=== PATIENT | female | born 1945 | race Caucasian/White ===

== ENCOUNTER 2020-04-18 18:42 | Inpatient (IN) | payer OTHER, MEDICARE ==
[2020-04-18] VITALS (17 sets, daily range): BP systolic 116–167; BP diastolic 63–127
[~2020-04-18] VITALS: Ht 152.4 cm; Wt 81.4 kg
--- NOTE | ~2020-04-18 | EKG ---
[place] [address] ELECTROCARDIOGRAM REPORT Name: BOBBY SWENSON Room: [address] ADM IN .R.#: [id number] Admission: 04/18/20 Attend Phys: Kyler Vick Discharge: Date of : 45 Date of Service: 04/20/20 0841 Report #: [id number] THIS REPORT FOR: //name// [facility] Test Date: 2020-04-20 Test Time: 08:41:47 Pat Name: BOBBY SWENSON Department: Room: [facility] Gender: F Fork Operator: : 1945 Requested By: Gerson Hurst Order Number: [id number] Reading MD: Measurements Intervals [place] Rate: 72 P: 50 [place]: 134 QRS: -2 QRSD: 101 T: 163 QT: 403 QTc: 442 Interpretive Statements Sinus rhythm Repol abnrm suggests ischemia, lateral leads Compared to ECG 04/19/2020 03:22:03 Possible ischemia now present Atrial fibrillation no longer present Ventricular premature complex(es) no longer present Left ventricular hypertrophy no longer present Inferior Q waves no longer present Q waves no longer present [email or web address] By: 0 0 Epiphany Epiphany, /RAÚL
[2020-04-18 19:01] LABS: ABSOLUTE BASOPHILS 0.1 thou/uL (0.0-0.2); ABSOLUTE EOSINOPHILS 0.2 thou/uL (0.0-0.7); ABSOLUTE MONOCYTES 0.7 thou/uL (0.0-1.2); ABSOLUTE NEUTROPHILS 5.8 thou/uL (1.6-8.1); BASOPHILS 0.7 %; EOSINOPHILS 1.9 %; HEMATOCRIT 43.7 % (37.0-47.0); HEMOGLOBIN 15.1 gm/dL (12.0-15.0); MCH 31.3 pg (26.0-34.0); MCHC 34.6 g/dL (28.0-37.0); MCV 90.7 fL (80.0-100.0); NUCLEATED RBCS 0 /100WBC; PLATELET COUNT* 260 thou/uL (150-400); POLYS 66.4 %; RBC 4.82 mil/uL (4.20-5.00); RDW-CV 14.3 % (10.5-14.5); WBC 8.7 thou/uL (4.0-11.0)
[2020-04-18] MEDS ORDERED: ELIQUIS5 M1 PO (19:01)
[2020-04-18 19:12] LABS: CALCIUM 9.3 mg/dL (8.5-10.1); CREATININE 0.8 mg/dL (0.6-1.3); POTASSIUM 3.5 mmol/L (3.5-5.1)
[2020-04-18 19:15] LABS: APTT 26.2 Seconds (25.0-31.3); PROTIME 10.5 Seconds (9.20-11.50)
[2020-04-18 19:18] LABS: CHOLESTEROL 290 mg/dL (<200); HDL CHOLESTEROL 33 mg/dL (>40); TC:HDL 8.8 Ratio (Not establshd); TRIGLYCERIDE 513 mg/dL (<150); VLDL 103 mg/dL (<40)
[2020-04-18 19:21] LABS: SERUM ASSESSMENT Slight Lipemia
[2020-04-18 19:24] LABS: ALBUMIN 3.6 g/dL (3.4-5.0); CK-MB MASS 1.8 ng/mL (<0.5-3.6); MAGNESIUM 1.9 mg/dL (1.8-2.4); TOTAL BILIRUBIN 0.3 mg/dL (<0.1-1.0); TOTAL PROTEIN 7.3 g/dL (6.4-8.2)
[2020-04-19] VITALS (46 sets, daily range): BP systolic 102–203; BP diastolic 47–124
[2020-04-19 03:21] LABS: HEMATOCRIT 41.9 % (37.0-47.0); HEMOGLOBIN 14.1 gm/dL (12.0-15.0); MCH 30.6 pg (26.0-34.0); MCHC 33.7 g/dL (28.0-37.0); MCV 90.8 fL (80.0-100.0); MPV 10.1 fl. (7.2-11.1); RBC 4.61 mil/uL (4.20-5.00); RDW-CV 14.4 % (10.5-14.5)
[2020-04-19 03:34] LABS: ALBUMIN 3.1 g/dL (3.4-5.0); CALCIUM 8.7 mg/dL (8.5-10.1); CREATININE 0.7 mg/dL (0.6-1.3); POTASSIUM 3.9 mmol/L (3.5-5.1); TOTAL BILIRUBIN 0.1 mg/dL (<0.1-1.0); TOTAL PROTEIN 6.1 g/dL (6.4-8.2)
--- NOTE | 2020-04-19 07:31 | NUR ---
PT PRESENTED TO THE UNIT IN AFIB RVR. RATING CHEST AND NECK PRESSURE 2/10. PT REPORTS O2 HELPED HER FEEL BETTER. PT STATES SHE "HASNT TAKEN ANY OF HER HOME MEDS IN A MONTH." PT WAS VERY ANXIOUS AND BP 160'S/100'S. DR ROBERTSON NOTIFIED. PRN ATIVAN ORDERED AND GIVEN. PT'S HR STARTED TO STABALIZE UNDER 100 SHORTLY BEFORE 0300. PT HAD A PAUSE FOLLOWED BY TAYLOR WITH COUPLETS/BIGEMINEY. PT CONVERTED TO SB AROUND 0600. PT DID SLEEP WELL WITH THE ATIVAN AND WOKE UP EASILY TO VOICE DURING CHECKS AND THIS AM. REPORT TO DAY RN.
--- NOTE | 2020-04-19 13:56 | EKG ---
[place] [address] ELECTROCARDIOGRAM REPORT Name: BOBBY SWENSON Room: [address] ADM IN .R.#: [id number] Admission: 04/18/20 Attend Phys: Kyler Vick Discharge: Date of : 45 Date of Service: 04/18/20 1853 Report #: [id number] THIS REPORT FOR: //name// [facility] ED Test Date: 2020-04-18 Test Time: 18:53:42 Pat Name: BOBBY SWENSON Department: Room: [facility] Gender: F Interactive Media Specialist: : 1945 Requested By: Marek Cooper Order Number: [id number] MD: Gerson Hurst Measurements Intervals [place] Rate: 160 P: 153 MI: 80 QRS: -8 QRSD: 94 T: 158 QT: 289 QTc: 472 Interpretive Statements atrial fibrillation Abnormal R-wave progression, late transition LVH with secondary repolarization abnormality ST depression, probably rate related Compared to ECG 06/05/2008 11:10:09 Sinus rhythm no longer present Electronically Signed On 04-19-2020 13:55:57 HEADING UP MACHINE OPERATOR by Gerson Hurst [email or web address] <ELECTRONICALLY SIGNED> By: Gerson Hurst MD, FAC 04/19/20 1355 52 52 Gerson Hurst MD, [facility] /EPI
--- NOTE | 2020-04-19 13:58 | EKG ---
[place] [address] ELECTROCARDIOGRAM REPORT Name: BOBBY SWENSON Room: [address] ADM IN M.R.#: [id number] Admission: 04/18/20 Attend Phys: Kyler Vick Discharge: Date of : 45 Date of Service: 04/19/20 0322 Report #: [id number] THIS REPORT FOR: //name// [facility] Test Date: 2020-04-19 Test Time: 03:22:03 Pat Name: BOBBY SWENSON Department: Room: [address] Gender: F Medical Education Coordinator: LANI : 1945 Requested By: Damaris Simmons Order Number: [id number] Reading MD: Gerson Hurst Measurements Intervals [place] Rate: 73 P: [place]: QRS: 6 QRSD: 94 T: 174 QT: 403 QTc: 444 Interpretive Statements Atrial fibrillation Ventricular premature complex LVH with secondary repolarization abnormality Abnormal inferior Q waves Compared to ECG 04/18/2020 18:53:42 Ventricular premature complex(es) now present rate has slowed ST (T wave) deviation still present Electronically Signed On 04-19-2020 13:58:33 CLERICAL RECEPTIONIST by Gerson Hurst [email or web address] <ELECTRONICALLY SIGNED> By: Gerson Hurst MD, [facility] 04/19/20 1358 1 1 Gerson Hurst MD, [facility] /EPI
--- NOTE | 2020-04-19 14:19 | CARD ---
[address] [address] CARDIAC CATH REPORT Name: BOBBY SWENSON Room: [address] IN [facility]#: [id number] Admission: 04/18/20 Attend Phys: Marisol Pruitt Discharge: Date of : 45 Report #: [id number] THIS REPORT FOR: cc: Spencer Hicks MD, Bruce D. MD ~ Gerson Hurst MD [facility] APPROVED REPORT Study performed: 04/18/2020 19:03:56 Patient Details Patient Status: In-Patient Room #: The patient is a 75 year-old female Event Personnel Gerson Hurst Fuel Cell Technician, Megan Rodrigues RN Senior Research Scientist, Anshul Azevedo PERSHING MISSILE CREWMEMBER Monitor, Destiny Mirza RTR Scrub Procedures Performed cath pci Indication Abnormal ECG, Palpitations, Atrial fibrillation, Chest pain Risk Factors Hypercholesterolemia, Coronary Artery DiseaseHypertension Previous Procedures/Diagnoses Previous PCI Admission/Lab Medications/Medications given during procedure Glycoprotein IllbIlla Inhibitors, Heparin Unfract. Procedure Narrative The patient was brought electively to the Cardiac Catheterization Laboratory and was prepped and draped in a sterile manner. The right wrist was infiltrated with 2% Lidocaine subcutaneous anesthesia. A Slender Glidesheath sheath was inserted into the right radial artery. Coronary angiography was performed using coronary diagnostic catheters. The right coronary system was accessed and visualized with a JR 3.5 catheter. The left coronary system was accessed and visualized with a JL4 catheter. The left ventricle was accessed and visualized with a Pig Tail catheter. Left ventricular/Aortic Valve [address] [address] CARDIAC CATH REPORT Name: SYDNIEAdeelBOBBY Room: [address] IN [facility]#: [id number] Admission: 04/18/20 Attend Phys: Marisol Pruitt Discharge: Date of : 45 Report #: [id number] gradient assessed via catheter pullback. Left ventriculogram was performed in GRANADO projection. Closure device was deployed with a 6 Fr Vasc-Band Reg 24cm. The patient tolerated the procedure well and there were no complications associated with the procedure. There was no hematoma. Intraoperative Conscious Sedation Sedation start time: 11:17 Case end Time: 12:15 Versed 2 mg Fluoro Time: 11.6 minutes Dose: DAP 308304 cGycm2 1792 mGy Contrast Type and Amount: Omnipaque 150 ml Coronary Angiography The patient's coronary anatomy is co- dominant. Diagnostic Cath Left Main 0% stenosis LAD 50% ostial stenosis, 80% stenosis just prior to the second diagonal, and 90% stenosis distal to the second diagonal Diagonal 2 small artery with 90% mid stenosis OM2 stent with 60% restenosis OM3 small vessel appeared chronically occluded and filled by bridging collaterals Right Coronary stent in proximal and mid vessel appeared chronicall occluded and filled by contralateral collaterals from the left coronary artery. Left Ventriculography The left ventricular ejection fraction is estimated to be 60-65%. Left ventricular wall motion abnormalities are not present. There is 1+ mitral insufficiency. Hemodynamics The aortic pressure is 140/55 mmHg with a mean of 89 mmHg. The left ventricular pressure is 143/10 mmHg with a mean of mmHg. The left ventricular end diastolic pressure is 20 mmHg. There was no gradient across the aortic valve upon pullback. Pullback from the left ventricle to the aorta revealed no gradient across the aortic valve. PCI Technique Lesion Anticoagulation was achieved with Heparin. [place] [address] CARDIAC CATH REPORT Name: BOBBY SWENSON Room: [address] IN [facility].#: [id number] Admission: 04/18/20 Attend Phys: Marisol Pruitt Discharge: Date of : 45 Report #: [id number] Percutaneous coronary intervention was performed on the mid left anterior descending artery segment. The lesion stenosis prior to intervention was 90% with ITALIA 3 flow. A 6F XB LAD 3.5 Guide Catheter was used to engage the left ostium. A IG: BMW 190cm Interventional Guidewire was used to cross the lesion. BALLOON DILATION A Balloon catheter Trek RX 2.5 X 8 was inserted and inflated up to 8.00atm for 12seconds. Repeat angiography revealed the following post-dilatation results: 60% stenosis. Additional Inflation: 8.00atm for 9seconds. Additional Inflation: 12.00atm for 14seconds. STENT DEPLOYMENT A drug-eluting stent Hadley RX Stent 2.5X12mm was inserted and inflated up to 11.00atm for 23seconds. Additional Inflation: 16.00atm for 8seconds. Additional Inflation: 20.00atm for 9seconds. After placing the first stent, a second drug eluting stent 3.0 x 12 mm was placed proximal to the first stent so that there was minimal overlap between the 2 stents Final angiography reveals 0 % stenosis with ITALIA 3 flow. PCI Technique Lesion 2 Percutaneous Coronary Intervention was performed on the proximal right coronary artery. Percutaneous coronary intervention was performed on the proximal right coronary artery. The lesion stenosis prior to intervention was 100% with ITALIA 0 flow. A JR4 Guide Catheter was used to engage the rca ostium. A bmw Interventional Guidewire was used to cross the lesion. Balloon Dilation Unable to advance the guide wire beyond the stenosis suggested the occlusion was chronic. Further attempts at PTCA of the RCA were abandoned. Conclusion 1. 90% stenosis of the mid LAD 2. Stent in the second marginal branch of the circumflex had a 60% restenosis 3. Stents in the proximal RCA could not be crossed with a guide wire suggesting the occlusion was chronic 4. LVEF 60-65% 5. successful placement of 2 drug eluting stents in the [place] [address] CARDIAC CATH REPORT Name: BELLADEBBIEBOBBY CASTRO Room: [address] IN [facility]#: [id number] Admission: 04/18/20 Attend Phys: Marisol Pruitt Discharge: Date of : 45 Report #: [id number] Cardiac Rehabilitation Referral Aggressive Medical Therapy Medications Administered Clopidogrel <ELECTRONICALLY SIGNED> By: Gerson Hurst MD, FACC 04/19/20 1419 1419 1419Gerson Hurst MD, FAC /INF
--- NOTE | 2020-04-19 20:13 | NUR ---
I ASSUMED CARE OF THE PATIENT AT 0700. SHE IS ALERT AND ORIENTED X4 AND IS UP WITH SBA. BED IS IN THE LOW LOCKED POSITION AND CALL LIGHT IS IN REACH. HOURLY ROUNDING IS COMPLETED AND PATIENT NEEDS ARE MET. PAIN IS MANAGED WITH PRN MEDS. SHE WENT TO THE EXPORT TRAFFIC DEPARTMENT MANAGER AND HAD STENTS PLACED. AFTER SHE RETURNED, BLOOD PRESSURE WAS HIGH AND PRN MEDS WERE GIVEN TO LOWER PRESSURE. DAUGHTER WAS AT THE BEDSIDE FOR A WHILE AND SEEMS TO INCREASE THE PATIENT'S ANXIETY. APPETITE IS GOOD AND SHE IS VOIDING APPRORIATELY. REPORT CALLED AND PATIENT WAS TRANSFERED TO TELE AT SHIFT CHANGE.
[2020-04-20 00:41] VITALS: BP 169/63
[2020-04-20 04:06] LABS: HEMOGLOBIN 12.3 gm/dL (12.0-15.0); MCH 30.8 pg (26.0-34.0); MCHC 34.1 g/dL (28.0-37.0); MCV 90.3 fL (80.0-100.0); MPV 9.4 fl. (7.2-11.1); RBC 3.99 mil/uL (4.20-5.00); RDW-CV 14.2 % (10.5-14.5); WBC 7.7 thou/uL (4.0-11.0)
[2020-04-20 04:24] LABS: CALCIUM 8.2 mg/dL (8.5-10.1); CREATININE 0.7 mg/dL (0.6-1.3); MAGNESIUM 1.7 mg/dL (1.8-2.4); POTASSIUM 3.5 mmol/L (3.5-5.1)
[2020-04-20 04:29] LABS: TROPONIN-I LEVEL 0.69 ng/mL (<0.06)
[2020-04-20 04:48] VITALS: BP 165/73
[2020-04-20] MEDS ORDERED: LIPITOR 40 MG T40 M1 PO (07:52)
[2020-04-20] MEDS ORDERED: CLOPIDOGREL75 MG PO (07:52)
[2020-04-20] MEDS ORDERED: COZAAR 25 MG TA25 M2 PO (07:52)
[2020-04-20] MEDS ORDERED: ASA81BEC PO (07:52)
[2020-04-20] MEDS ORDERED: AMIODARONE HCL400 MG PO (07:54)
[2020-04-20 08:01] VITALS: BP 190/78
--- NOTE | 2020-04-20 08:44 | NUR ---
ASSUMED CARE OF PT THIS AM AROUND 0715- LABOR TRAINING MANAGER IN PLACE ORDERED, TRACING SR- UPON ASSESSMENT PT NOTED TO BE UP IN BED SIDE RECLINER- PT A&O X4- CONT OF B/B- UP AD-KADEI IN ROOM, STEADY GAIT NOTED- LCTA, DYSPNEA NOTED ON EXERTION- BP NOTED TO BE ELEVATED AT 190/78,PRN HYDRALAZINE GIVEN THIS AM AT 0750- O2 SAT 98% ON RA- ABD SOFT/ROUND/NON-TENDER, BS X4 QUADS- LAST BM REPORTED 04/18/20- IV NOTED TO LEFT HAND AND RIGHT AC INTACT AND SL- POOR PO INTAKE NOTED THIS AM WITH BREAKFAST- PT DENEIS ANY C/O PAIN- D/C PENDING CARDIO THIS AM- CALL LIGHT AND PERSONAL BELONGINGS WITH IN REACH- ALL NEEDS MET AT THIS TIME
[2020-04-20 09:48] VITALS: BP 181/70
[2020-04-20 10:04] VITALS: BP 181/70
--- NOTE | 2020-04-20 10:05 | NUR ---
Cardiac Rehab. Attempted to see patient but was already discharged. Will main Cardiac Rehab booklet, Heart Healthy Diet book, Stent booklet and stent card to home address.
--- NOTE | 2020-04-20 13:05 | CON ---
[address] [address] CONSULTATION Name: BOBBY SWENSON Room: [address] IN M.Cory.#: [id number] Admission: 04/18/20 Attend Phys: Marisol Pruitt Discharge: 04/20/20 Date of : 45 Report #: [id number] THIS REPORT FOR: cc: Spencer Hicks MD, Bruce D. MD ~ Gerson Hurst MD [facility] DATE OF SERVICE: 04/19/2020 CARDIOLOGY CONSULTATION HISTORY OF PRESENT ILLNESS: The patient is a 75-year-old single white female who I was asked to see in the hospital after she complained of chest pain. The patient has an extensive and complicated past medical history. Unfortunately, most of her records are not available here at [facility]. She states she presented with chest pain back in 2000 and had 3 coronary artery stents placed at [facility] by Dr. Tran. Her last stress test was about a year ago. She is not very active at this time. She notes that 2 years ago, she was admitted to [place] with palpitations and was found to have atrial fibrillation. She converted to sinus rhythm. She was placed on carvedilol and Eliquis. She has had no further palpitations since that time. However, she notes that several weeks ago, she ran out of her medications and currently is taking only an aspirin 81 mg a day. She notes about a month ago, she has had an episode of an irregular heartbeat lasting about 30 minutes, resolved. Yesterday, she went out to dinner with her daughter. When she went home, she felt weak. She then felt her heart beating fast. She felt heaviness in her chest, went into her jaw, she felt short of breath. Her daughter brought her here to [facility]. She was found to be in atrial fibrillation. She was started on intravenous Cardizem and converted to sinus rhythm. I was asked to see her for further evaluation and treatment. She denies recent fever or cough. She does have occasional edema. She has had no syncope. PAST MEDICAL HISTORY: She has had no surgical procedure. She does have a history of hypertension, hyperlipidemia. MEDICATIONS: She ran out of several weeks ago included Eliquis, carvedilol, lisinopril, losartan, Lipitor. She does take aspirin 81 mg a day. ALLERGIES: SHE HAS A PREVIOUS INTOLERANCE TO CODEINE. FAMILY HISTORY: Her father had diabetes and heart disease. SOCIAL HISTORY: She is , lives by herself in [place]. She works at [employer], smokes half pack of cigarettes a day[place] [address] CONSULTATION Name: BOBBY SWENSON Room: [address] IN M.R.#: [id number] Admission: 04/18/20 Attend Phys: Marisol Pruitt Discharge: 04/20/20 Date of : 45 Report #: [id number] REVIEW OF SYSTEMS: She is overweight, being 5 feet 5, 170 pounds. She apparently had a stroke years ago that affected her right arm. No history of asthma, liver disease, kidney disease, cancer, psychiatric illness, chronic skin condition. PHYSICAL EXAMINATION: GENERAL: Revealed an elderly female lying in bed. She appeared in no distress. CURRENT VITAL SIGNS: She has a blood pressure of 130/60, pulse is 56. She is afebrile. HEENT: She is anicteric. Conjunctivae pink. Mucous membranes moist. NECK: Veins nondistended. No carotid bruits. CHEST: Clear to auscultation. CARDIOVASCULAR: Regular, bradycardia, no significant murmur. ABDOMEN: Soft. EXTREMITIES: Had no edema. SKIN: Warm and dry. NEUROLOGIC: Nonfocal. Her ECG on admission showed atrial fibrillation with rapid ventricular response rate, left ventricular hypertrophy and repolarization changes, poor R-wave progression. During the night on the Cardizem, she developed a junctional rhythm and she then had a 7-second pause while on the Cardizem, which was subsequently discontinued. She is now in sinus bradycardia. Her workup last night in the Emergency Room, she had a portable chest x-ray that showed normal heart size and clear lung wilson. She actually had an MRI of the brain back in 2008 that showed a lacunar infarction. Previous carotid Doppler study in 2008 showed plaque, but no significant stenosis. LABORATORY WORK: Last night, sodium 143, potassium 3.9, creatinine 0.7, glucose is 135. Liver function studies were normal. Troponins all 0.06. BNP 604. Cholesterol 290, triglyceride 513, HDL 33, LDL could not be calculated because of high triglycerides. White blood cell count 9.0, hemoglobin 14.1. IMPRESSION AND RECOMMENDATIONS: 1. Unstable angina. Recommend cardiac catheterization. The patient with previous stents. 2. Atrial fibrillation. Recommend antiarrhythmic therapy. I would consider anticoagulation. 3. Sick sinus syndrome. The patient had a 7-second pause. Consider pacemaker insertion. 4. Hypertension. The patient ran out of her MAC inhibitor. 5. Glucose intolerance. 6. Dyslipidemia. The patient has elevated triglycerides and cholesterol. The patient was on a statin drug in the past. [address] [place] [address] CONSULTATION Name: BOBBY SWENSON Room: [address] IN ..#: [id number] Admission: 04/18/20 Attend Phys: Marisol Pruitt Discharge: 04/20/20 Date of : 45 Report #: [id number] 7. Obesity. 8. Previous stroke. Suspect embolic event from atrial fibrillation. Recommend repeat carotid Doppler and anticoagulation. <ELECTRONICALLY SIGNED> By: Gerson Hurst MD, FACC 04/20/20 1305 0958 1015Dachapito Hurst MD, FACC /nt
--- NOTE | 2020-04-20 15:13 | EKG ---
[place] [address] ELECTROCARDIOGRAM REPORT Name: BOBBY SWENSON Room: [address] DIS IN M.R.#: [id number] Admission: 04/18/20 Attend Phys: Kyler Vick Discharge: 04/20/20 Date of : 45 Date of Service: 04/20/20 0841 Report #: [id number] THIS REPORT FOR: //name// [facility] Test Date: 2020-04-20 Test Time: 08:41:47 Pat Name: BOBBY SWENSON Department: Room: [address] Gender: F Aoc Operations Intelligence Chief: : 1945 Requested By: Gerson Hurst Order Number: [id number] Reading MD: Hesham Tucker Measurements Intervals [place] Rate: 72 P: 50 [place]: 134 QRS: -2 QRSD: 101 T: 163 QT: 403 QTc: 442 Interpretive Statements Sinus rhythm Repol abnrm suggests ischemia, lateral leads Compared to ECG 04/19/2020 03:22:03 Possible ischemia now present Atrial fibrillation no longer present Ventricular premature complex(es) no longer present Left ventricular hypertrophy no longer present Inferior Q waves no longer present Q waves no longer present Electronically Signed On 04-20-2020 15:13:24 REGENERATION OPERATOR by Hesham Tucker [email or web address] <ELECTRONICALLY SIGNED> By: Hesham Tucker MD, FAC 04/20/20 1513 0 0 Hesham Tucker MD, [facility] /EPI
[2020-04-21 02:06] LABS: GLYCOHEMOGLOBIN (HGB A1C) 5.6 % (4.8-5.6)
== END 2020-04-20 10:00 | disposition home or self-care (01) | DRG 246 ==
LOC: M.ERS 18:42 → M.TBA-ER 19:07 → M.ICU 21:08 → M.2W 04-19 19:40
PROVIDERS: Family Medicine; Internal Medicine; Internal Medicine Cardiovascular Disease; ADMIT Internal Medicine; ATTEND Internal Medicine
PROC: B2151ZZ Fluoroscopy of Left Heart using Low Osmolar Contrast (ICD-10-PCS; principal; 2020-04-18)
PROC: 3E033PZ Introduction of Platelet Inhibitor into Peripheral Vein, Percutaneous Approach (ICD-10-PCS; principal; 2020-04-18)
PROC: B2111ZZ Fluoroscopy of Multiple Coronary Arteries using Low Osmolar Contrast (ICD-10-PCS; principal; 2020-04-18)
PROC: 4A023N7 Measurement of Cardiac Sampling and Pressure, Left Heart, Percutaneous Approach (ICD-10-PCS; principal; 2020-04-18)
PROC: 027035Z Dilation of Coronary Artery, One Artery with Two Drug-eluting Intraluminal Devices, Percutaneous Approach (ICD-10-PCS; principal; 2020-04-18)
DX: I25.110 Atherosclerotic heart disease of native coronary artery with unstable angina pectoris (principal); J96.01 Acute respiratory failure with hypoxia; I48.20 Chronic atrial fibrillation, unspecified; T82.855A Stenosis of coronary artery stent, initial encounter; Y83.8 Other surgical procedures as the cause of abnormal reaction of the patient, or of later complication, without mention of misadventure at the time of the procedure; Z20.822 Contact with and (suspected) exposure to COVID-19; I25.2 Old myocardial infarction; Z79.01 Long term (current) use of anticoagulants; Z88.5 Allergy status to narcotic agent; Z88.8 Allergy status to other drugs, medicaments and biological substances; Y92.89 Other specified places as the place of occurrence of the external cause

== ENCOUNTER 2021-03-24 08:43 | Inpatient (IN) | payer OTHER, MEDICARE ==
[~2021-03-24] VITALS: Ht 154.9 cm; Wt 72.6 kg
[~2021-03-24 08:43] MED LIST: AMIODARONE HCL400 MG PO; ASA81BEC PO; CLOPIDOGREL75 MG PO; COZAAR 25 MG TA25 M2 PO; ELIQUIS5 M1 PO; LIPITOR 40 MG T40 M1 PO
[2021-03-24 08:53] VITALS: BP 114/63
[2021-03-24 09:30] LABS: INFLUENZA A ANTIGEN Negative (Negative); INFLUENZA B ANTIGEN Negative (Negative)
[2021-03-24 09:32] LABS: ABSOLUTE EOSINOPHILS 0.1 thou/uL (0.0-0.7); ABSOLUTE LYMPHOCYTES 0.8 thou/uL (0.8-5.3); ABSOLUTE MONOCYTES 0.6 thou/uL (0.0-1.2); ABSOLUTE NEUTROPHILS 3.5 thou/uL (1.6-8.1); BASOPHILS 0.4 %; EOSINOPHILS 1.2 %; HEMATOCRIT 46.1 % (37.0-47.0); HEMOGLOBIN 15.7 gm/dL (12.0-15.0); LYMPHOCYTES 15.3 %; MCH 29.4 pg (26.0-34.0); MCHC 34.1 g/dL (28.0-37.0); MCV 86.2 fL (80.0-100.0); MONOCYTES 12.5 %; MPV 9.1 fl. (7.2-11.1); NUCLEATED RBCS 0 /100WBC; PLATELET COUNT* 172 thou/uL (150-400); POLYS 70.6 %; RBC 5.35 mil/uL (4.20-5.00); RDW-CV 14.5 % (10.5-14.5)
[2021-03-24 09:42] LABS: CALCIUM 8.7 mg/dL (8.5-10.1); CREATININE 0.8 mg/dL (0.6-1.3); POTASSIUM 3.5 mmol/L (3.5-5.1)
[2021-03-24 09:44] LABS: URINE BLOOD NEGATIVE (Negative); URINE CLARITY CLEAR; URINE COLOR YELLOW; URINE GLUCOSE-RANDOM NEGATIVE (Negative); URINE KETONES NEGATIVE (Negative); URINE LEUKOCYTES NEGATIVE (Negative); URINE NITRITE NEGATIVE (Negative); URINE PROTEIN NEGATIVE (Negative); URINE SPECIFIC GRAVITY 1.025 (1.005-1.030)
[2021-03-24 09:46] LABS: ALBUMIN 3.5 g/dL (3.4-5.0); TOTAL BILIRUBIN 0.8 mg/dL (<0.1-1.0); TOTAL PROTEIN 7.3 g/dL (6.4-8.2)
[2021-03-24 09:48] LABS: ICTOTEST (BILI CONFIRMATORY) Negative (Negative); URINE BILIRUBIN 2+ (Negative)
--- NOTE | 2021-03-24 10:58 | EKG ---
[place] [address] ELECTROCARDIOGRAM REPORT Name: BOBBY SWENSON Room: [place] [address] ADM IN [facility].#: [id number] Admission: 03/24/21 Attend Phys: Dona Aaron, Discharge: Date of : 45 Date of Service: 03/24/219[address] Report #: [id number] THIS REPORT FOR: //name// [facility] ED Test Date: 2021-03-24 Test Time: 09:19:05 Pat Name: BOBBY SWENSON Department: Room: [facility] Gender: F Diesel Engine Erector: IFEOMA : 1945 Requested By: Kedar Lara Order Number: [id number] MD: Kris Martin Measurements Intervals [place] Rate: 135 P: [place]: QRS: -3 QRSD: 102 T: 78 QT: 323 QTc: 485 Interpretive Statements Atrial fibrillation Probable LVH with secondary repol abnrm Compared to ECG 04/20/2020 08:41:47 Sinus rhythm no longer present Possible ischemia no longer present Electronically Signed On 03-24-2021 10:57:54 MANAGER COMMERCIAL SALES by Kris Martin [email or web address] <ELECTRONICALLY SIGNED> By: Kris Martin MD, FACC 03/24/21 1057 8 8 Kris Martin MD, FACC /EPI
[2021-03-24 14:54] VITALS: BP 132/72
[2021-03-24 18:28] VITALS: BP 165/130
[2021-03-24 20:55] VITALS: BP 150/72
[2021-03-24 21:15] VITALS: BP 116/64
[2021-03-25 00:11] VITALS: BP 130/60
[2021-03-25 04:04] VITALS: BP 117/72
[2021-03-25 04:23] LABS: HEMATOCRIT 41.2 % (37.0-47.0); MCH 29.3 pg (26.0-34.0); MCHC 33.3 g/dL (28.0-37.0); MCV 87.9 fL (80.0-100.0); MPV 8.5 fl. (7.2-11.1); RBC 4.68 mil/uL (4.20-5.00); RDW-CV 14.9 % (10.5-14.5); WBC 2.4 thou/uL (4.0-11.0)
[2021-03-25 04:49] LABS: HEMOGLOBIN 13.7 gm/dL (12.0-15.0)
[2021-03-25 04:58] LABS: ALBUMIN 2.8 g/dL (3.4-5.0); CREATININE 0.7 mg/dL (0.6-1.3); MAGNESIUM 1.8 mg/dL (1.8-2.4); POTASSIUM 3.8 mmol/L (3.5-5.1); TOTAL BILIRUBIN 0.4 mg/dL (<0.1-1.0); TOTAL PROTEIN 6.2 g/dL (6.4-8.2)
[2021-03-25 09:00] VITALS: BP 147/66
[2021-03-25 12:00] VITALS: BP 154/68
[2021-03-25 16:00] VITALS: BP 159/68
--- NOTE | 2021-03-25 17:08 | 2DMMODE ---
[place] [address] 2 D/M-MODE ECHOCARDIOGRAM Name: BOBBY SWENSON Room: [address] IN [facility]#: [id number] Admission: 03/24/21 Attend Phys: Dona Aaron, Discharge: Date of : 45 Date of Service: 03/25/21 1707 Report #: [id number] THIS REPORT FOR: cc: Spencer Hicks MD, Bruce D. MD Liston, Michael J. MD [facility] ~ APPROVED REPORT Study performed: 03/25/2021 16:22:42 EXAM: Comprehensive 2D, Doppler, and color-flow Echocardiogram Patient Location: In-Patient Room #: [facility] Status: routine BSA: 1.65 HR: 59 bpm Rhythm: NSR Indications Atrial Fibrillation Dyspnea 2D Dimensions IVSd: 11.39 (7-11mm) LVOT Diam: 19.02 (18-24mm) LVDd: 51.97 mm PWd: 11.30 (7-11mm) Ascending Ao: 33.89 (22-36mm) LVDs: 27.84 (25-40mm) Aortic Root: 29.30 mm Volumes Left Atrial Volume (Systole) LA ESV Index: 38.10 mL/m2 Aortic Valve AoV Peak Omero.: 1.57 m/s AO Peak Gr.: 9.87 mmHg LVOT Max P.14 mmHg AO Mean Gr.: 5.41 mmHg LVOT Mean P.24 mmHg LVOT Max V: 1.13 m/s AO V2 VTI: 33.37 cm LVOT Mean V: 0.68 m/s BHUMI (VTI): 1.99 cm2 LVOT V1 VTI: 23.32 cm TDI Medial E' Omero.: 0.09 m/[place] [address] 2 D/M-MODE ECHOCARDIOGRAM Name: BOBBY SWENSON German Room: [address] IN .R.#: [id number] Admission: 03/24/21 Attend Phys: oDna Aaron, Discharge: Date of : 45 Date of Service: 03/25/21 1707 Report #: [id number] Lateral E' Omero.: 0.12 m/s Pulmonary Valve PV Peak Omero.: 1.04 m/s PV Peak Gr.: 4.29 mmHg Tricuspid Valve RAP Estimate: 5.00 mmHg TR Peak Gr.: 27.49 mmHg RVSP: 32.00 mmHg PA Pressure: 32.00 mmHg Left Ventricle The left ventricle is normal size. There is normal LV segmental wall motion. Mild concentric left ventricular hypertrophy. Left ventricular systolic function is normal. LVEF is 50-55%. Grade IV - fixed restrictive diastolic dysfunction. Right Ventricle The right ventricle is normal size. The right ventricular systolic function is normal. Atria Left atrium is mildly dilated. The right atrium size is normal. Aortic Valve Mild aortic valve sclerosis. No aortic regurgitation is present. Mild aortic stenosis. Mitral Valve The mitral valve is normal in structure. Mild mitral regurgitation. No evidence of mitral valve stenosis. Tricuspid Valve The tricuspid valve is normal in structure. Trace tricuspid regurgitation. Mild pulmonary hypertension. Pulmonic Valve The pulmonary valve is normal in structure. There is no pulmonic valvular regurgitation. Great Vessels The aortic root is normal in size. IVC is normal in size and collapses >50% with inspiration. Pericardium There is no pericard[place] [address] 2 D/M-MODE ECHOCARDIOGRAM Name: BOBBY SWENSON Room: [address] IN [facility]#: [id number] Admission: 03/24/21 Attend Phys: Dona Aaron, Discharge: Date of : 45 Date of Service: 03/25/21 1707 Report #: [id number] <Conclusion> The left ventricle is normal size. Mild concentric left ventricular hypertrophy. Left ventricular systolic function is normal. LVEF is 50-55%. Grade IV - fixed restrictive diastolic dysfunction. Left atrium is mildly dilated. Mild aortic valve sclerosis. Mild mitral regurgitation. Trace tricuspid regurgitation. Mild pulmonary hypertension. IVC is normal in size and collapses >50% with inspiration. <ELECTRONICALLY SIGNED> By: Hesham Tucker MD, FACC 03/25/211706 06 06 Hesham Tucker MD, FACC /INF
[2021-03-25 21:00] VITALS: BP 170/82
[2021-03-26] VITALS: BP 140/64
[2021-03-26 04:00] VITALS: BP 145/66
[2021-03-26 05:45] LABS: HEMATOCRIT 40.7 % (37.0-47.0); HEMOGLOBIN 13.8 gm/dL (12.0-15.0); MCH 29.1 pg (26.0-34.0); MCHC 33.8 g/dL (28.0-37.0); MCV 85.9 fL (80.0-100.0); RBC 4.74 mil/uL (4.20-5.00); RDW-CV 14.2 % (10.5-14.5)
[2021-03-26 06:00] LABS: WBC 10.7 thou/uL (4.0-11.0)
[2021-03-26 06:55] LABS: CALCIUM 8.3 mg/dL (8.5-10.1); CREATININE 0.8 mg/dL (0.6-1.3); MAGNESIUM 1.8 mg/dL (1.8-2.4); POTASSIUM 3.5 mmol/L (3.5-5.1); TOTAL BILIRUBIN 0.4 mg/dL (<0.1-1.0); TOTAL PROTEIN 6.2 g/dL (6.4-8.2)
[2021-03-26 09:00] VITALS: BP 135/64
[2021-03-26 12:00] VITALS: BP 120/69
[2021-03-26 16:00] VITALS: BP 128/63; BP 150/60
[2021-03-26 20:30] VITALS: BP 147/67
[2021-03-27] VITALS: BP 138/77
[2021-03-27 06:05] VITALS: BP 129/81
[2021-03-27 08:00] VITALS: BP 172/72
[2021-03-27 11:30] VITALS: BP 158/67
[2021-03-27] MEDS ORDERED: BROVANA15 MCG/2 M INH (13:40)
[2021-03-27] MEDS ORDERED: LEVALBUTER0.63 MG/3 INH (13:40)
[2021-03-27] MEDS ORDERED: LOSARTAN-HCTZ1 EACH PO (13:40)
[2021-03-27] MEDS ORDERED: PACERONE 200 M200 M1 PO (13:40)
[2021-03-27] MEDS ORDERED: PULMICORT0.5 MG/2 M INH (13:40)
[2021-03-27] MEDS ORDERED: DEXAMETHASONE 22 M1 PO (13:40)
[2021-03-27] MEDS ORDERED: ELIQUIS5 MG PO (13:40)
[2021-03-28 00:24] VITALS: BP 166/74
[2021-03-28 04:38] VITALS: BP 175/70
[2021-03-28 08:00] VITALS: BP 109/76
[2021-03-28 11:28] VITALS: BP 109/76
== END 2021-03-28 13:30 | disposition home or self-care (01) | DRG 177 ==
LOC: M.ERS 08:43 → M.ORTHSURG 10:11 → M.TBA-ER 10:11 → M.ORTHSURG 20:55
PROVIDERS: Emergency Medicine; ADMIT Internal Medicine; ATTEND Internal Medicine
DX: U07.1 COVID-19 (principal); J12.82 Pneumonia due to coronavirus disease 2019; I50.32 Chronic diastolic (congestive) heart failure; D68.69 Other thrombophilia; F17.210 Nicotine dependence, cigarettes, uncomplicated; E86.9 Volume depletion, unspecified; I25.10 Atherosclerotic heart disease of native coronary artery without angina pectoris; I11.0 Hypertensive heart disease with heart failure; I48.0 Paroxysmal atrial fibrillation; Z28.21 Immunization not carried out because of patient refusal; I25.2 Old myocardial infarction; Z95.5 Presence of coronary angioplasty implant and graft; Z86.73 Personal history of transient ischemic attack (TIA), and cerebral infarction without residual deficits; Z88.6 Allergy status to analgesic agent; Z88.8 Allergy status to other drugs, medicaments and biological substances